=== PATIENT | female | born 1950 | race Caucasian/White ===

== ENCOUNTER 2019-10-25 09:09 | Outpatient (CLI) | payer MEDICARE, OTHER, SELFPAY ==
[2019-10-25 10:09] LABS: Alanine Aminotransferase 14 U/L (4-35); Albumin Level 4.4 g/dL (3.5-5.1); Alkaline Phosphatase 69 U/L (38-126); Aspartate Amino Transferase 25 U/L (14-36); Bilirubin,Total 0.2 mg/dL (0.2-1.3); Blood Urea Nitrogen 22 mg/dL (7-17); CRP < 0.5 mg/dL (<1.0); Calcium 9.4 mg/dL (8.4-10.2); Carbon Dioxide 30 mmol/L (22-30); Chloride 103 mmol/L (98-107); Cholesterol 241 mg/dL (0-200); Estimated Glomerular Filt Rate > 60; Glucose 108 mg/dL (65-105); HDL Direct 63 mg/dL; Potassium 5.4 mmol/L (3.4-5.0); Sodium 139 mmol/L (137-145); Triglycerides 62 mg/dL (<150)
[2019-10-25 10:17] LABS: LDL Cholesterol Direct 140 mg/dL
[2019-10-25 11:11] LABS: Folic Acid 13.5 ng/mL (2.76->20)
== END 2019-10-25 09:10 | disposition home or self-care (01) ==
PROVIDERS: PCP Family Medicine; Visit Provider Family Medicine
DX: E55.9 Vitamin D deficiency, unspecified (principal); I10 Essential (primary) hypertension; E78.00 Pure hypercholesterolemia, unspecified; E03.9 Hypothyroidism, unspecified
CPT/HCPCS: 36415; 80053; 80061; 82607; 82746; 84443; 86140

== ENCOUNTER 2020-01-21 07:30 | Outpatient (RCR) | payer MEDICARE, OTHER, SELFPAY ==
[2020-01-04 15:43] VITALS: PULSE 83
--- NOTE | 2020-01-10 08:30 | PCCPR ---
Suyapa absent today, she had to check on her elderly father. Suyapa will also be absent Tuesday and Tuesday next week for vacation.
--- NOTE | 2020-01-23 07:47 | PCCPR ---
absent-not feeling well
--- NOTE | 2020-01-24 11:42 | PCCPR ---
pt called and LM= something is going on and I need to talk to my Dr to figure it out - she stated she didn't want to hold up a spot for CR, so remove her from the list until she figures it out. Pt stated had OV on 01/24. Attempted to return call to discuss further with pt, ARPAN.
--- NOTE | 2020-01-30 10:59 | PCCPR ---
Discharging-Called to check in as we had received a voicemail that Suyapa was not feeling well and was trying to meet with MD to figure out what was going on. Spoke to Suyapa who states that she has too much traveling and cardiac rehab is not going to work out right now. Told Lizette she hadnt gotten her medication issues figured out yet. Will discharge patient from program.
== END 2020-01-30 11:02 | disposition home or self-care (01) ==
LOC: ANHCPREHAB 07:30
PROVIDERS: PCP Nurse Practitioner Family
DX: Z95.1 Presence of aortocoronary bypass graft (principal)
CPT/HCPCS: 93798

== ENCOUNTER 2020-08-12 09:26 | Outpatient (CLI) | payer MEDICARE, OTHER, SELFPAY ==
[2020-08-12 10:05] LABS: Basophils Absolute Auto 0.1 K/mm3 (0.0-0.1); Basophils Percent Auto 1.2 % (0.2-1.2); Eosinophils Absolute Auto 0.2 K/mm3 (0-0.3); Eosinophils Percent Auto 3.1 % (0-4.4); Hematocrit 46.7 % (37.0-47.0); Hemoglobin 15.3 g/dL (12.0-15.0); Immature Granulocyte Absolute 0.01 K/mm3 (0.00-0.031); Immature Granulocyte Percent A 0.2 % (0-0.5); Lymphocytes Absolute Auto 2.24 K/mm3 (0.9-3.2); Mean Corpuscular HGB Conc 32.8 g/dl (32-36); Mean Corpuscular Hemoglobin 29.6 pg (26-34); Mean Corpuscular Volume 90.3 fl (80-100); Mean Platelet Volume 9.2 fl (7.4-10.4); Monocytes Absolute Auto 0.5 K/mm3 (0.1-0.6); Monocytes Percent Auto 9.4 % (2.6-8.5); Neutrophils Absolute Auto 2.1 K/mm3 (1.3-6.7); Neutrophils Percent Auto 42.1 % (45.5-73.1); Platelet Count Result 231 k/mm3 (150-375); Red Blood Count 5.17 M/mm3 (4.2-5.4); Red Cell Distribution Width 13.3 % (11.5-14.5); White Blood Count 5.1 K/mm3 (4.5-10.0)
[2020-08-12 10:15] LABS: Anion Gap 5 mmol/L (8-16); Blood Urea Nitrogen 22 mg/dL (7-17); Calcium 9.1 mg/dL (8.4-10.2); Carbon Dioxide 33 mmol/L (22-30); Chloride 101 mmol/L (98-107); Cholesterol 248 mg/dL (0-200); Estimated Glomerular Filt Rate > 60; Glucose 90 mg/dL (65-105); HDL Direct 79 mg/dL; Potassium 4.3 mmol/L (3.4-5.0); Sodium 139 mmol/L (137-145); Triglycerides 87 mg/dL (<150)
[2020-08-12 10:26] LABS: LDL Cholesterol Direct 120 mg/dL
== END 2020-08-12 09:27 | disposition home or self-care (01) ==
PROVIDERS: PCP Nurse Practitioner Family
DX: I25.10 Atherosclerotic heart disease of native coronary artery without angina pectoris (principal); E78.5 Hyperlipidemia, unspecified; R53.83 Other fatigue
CPT/HCPCS: 36415; 80048; 80061; 84443; 85025

== ENCOUNTER 2020-11-13 08:39 | Outpatient (CLI) | payer MEDICARE, OTHER, SELFPAY ==
[2020-11-13 09:17] LABS: Alanine Aminotransferase 26 U/L (4-35); Albumin Level 4.3 g/dL (3.5-5.1); Alkaline Phosphatase 53 U/L (38-126); Aspartate Amino Transferase 41 U/L (14-36); Bilirubin,Total 0.5 mg/dL (0.2-1.3); Cholesterol 166 mg/dL (0-200); HDL Direct 58 mg/dL; Triglycerides 95 mg/dL (<150)
[2020-11-13 09:28] LABS: LDL Cholesterol Direct 69 mg/dL
== END 2020-11-13 08:40 | disposition home or self-care (01) ==
PROVIDERS: PCP Nurse Practitioner Family
DX: E78.5 Hyperlipidemia, unspecified (principal)
CPT/HCPCS: 36415; 80061; 80076

== ENCOUNTER 2021-07-27 09:12 | Outpatient (CLI) | payer MEDICARE, OTHER, SELFPAY ==
--- NOTE | ~2021-07-27 | MM_ITS ---
EXAMINATION: MM screening [facility] BI w karina HISTORY: Screening TECHNIQUE: Craniocaudal and mediolateral oblique 3-D tomosynthesis images were obtained and synthetic 2-D images were generated. CAD analysis was submitted and interpreted. COMPARISON: 11/17/2012 BREAST PARENCHYMAL COMPOSITION: There are scattered areas of fibroglandular density. FINDINGS: There is no evidence of suspicious mass, calcification, or architectural distortion to sugg est malignancy in either breast. There has been no suspicious interval change. IMPRESSION: 1. No mammographic evidence of malignancy. 2. Recommend routine screening mammography in one year. BI-RADS Category 1: Negative Reviewed, dictated and finalized at location A.
[2021-07-27 10:05] LABS: Basophils Absolute Auto 0.1 K/mm3 (0.0-0.1); Basophils Percent Auto 0.9 % (0.2-1.2); Eosinophils Absolute Auto 0.2 K/mm3 (0-0.3); Eosinophils Percent Auto 3.3 % (0-4.4); Hematocrit 41.7 % (37.0-47.0); Hemoglobin 13.6 g/dL (12.0-15.0); Immature Granulocyte Absolute 0.02 K/mm3 (0.00-0.031); Immature Granulocyte Percent A 0.3 % (0-0.5); Lymphocytes Percent Auto 32.6 % (18.3-44.2); Mean Corpuscular HGB Conc 32.6 g/dl (32-36); Mean Corpuscular Hemoglobin 29.8 pg (26-34); Mean Corpuscular Volume 91.2 fl (80-100); Mean Platelet Volume 9.5 fl (7.4-10.4); Monocytes Absolute Auto 0.7 K/mm3 (0.1-0.6); Neutrophils Absolute Auto 3.4 K/mm3 (1.3-6.7); Neutrophils Percent Auto 51.9 % (45.5-73.1); Platelet Count Result 263 k/mm3 (150-375); Red Blood Count 4.57 M/mm3 (4.2-5.4); Red Cell Distribution Width 13.2 % (11.5-14.5); White Blood Count 6.5 K/mm3 (4.5-10.0)
[2021-07-27 10:11] LABS: Alanine Aminotransferase 17 U/L (4-35); Albumin Level 4.3 g/dL (3.5-5.1); Alkaline Phosphatase 67 U/L (38-126); Anion Gap 7 mmol/L (8-16); Aspartate Amino Transferase 37 U/L (14-36); Bilirubin,Total 0.5 mg/dL (0.2-1.3); Blood Urea Nitrogen 18 mg/dL (7-17); Carbon Dioxide 29 mmol/L (22-30); Chloride 103 mmol/L (98-107); Cholesterol 162 mg/dL (0-200); Estimated Glomerular Filt Rate > 60; Glucose 99 mg/dL (65-110); HDL Direct 46 mg/dL; Potassium 4.4 mmol/L (3.4-5.0); Sodium 139 mmol/L (137-145); Triglycerides 98 mg/dL (<150)
[2021-07-27 10:22] LABS: LDL Cholesterol Direct 67 mg/dL
[2021-07-27 11:04] LABS: Thyroid Stimulating Hormone Reflex < 0.015 uIU/mL (0.465-4.68)
[2021-07-27 12:29] LABS: Free T4 Free Thyroxine Reflex 1.99 ng/dL (0.78-2.19)
[2021-07-27 13:15] LABS: Total Triiodothyronine (T3) 1.19 NG/ML (0.97-1.69)
== END 2021-07-27 09:13 | disposition home or self-care (01) ==
PROVIDERS: PCP Nurse Practitioner Family; Referring Provider Internal Medicine Cardiovascular Disease; Visit Provider Nurse Practitioner Family
DX: Z12.31 Encounter for screening mammogram for malignant neoplasm of breast (principal); F34.1 Dysthymic disorder; I10 Essential (primary) hypertension; I25.708 Atherosclerosis of coronary artery bypass graft(s), unspecified, with other forms of angina pectoris; Z95.1 Presence of aortocoronary bypass graft; Z95.5 Presence of coronary angioplasty implant and graft
CPT/HCPCS: 36415; 77063; 77067; 80053; 80061; 83735; 84439; 84443; 84480; 85025

== ENCOUNTER 2022-01-01 09:18 | Outpatient (CLI) | payer MEDICARE, OTHER, SELFPAY ==
[2022-01-01 20:28] LABS: Alanine Aminotransferase 20 U/L (6-35); Albumin Level 4.5 g/dL (3.5-5.1); Alkaline Phosphatase 63 U/L (38-126); Anion Gap 10 mmol/L (8-16); Aspartate Amino Transferase 32 U/L (14-36); Bilirubin,Total 0.4 mg/dL (0.2-1.3); Blood Urea Nitrogen 16 mg/dL (7-17); Calcium 9.5 mg/dL (8.4-10.2); Carbon Dioxide 28 mmol/L (22-30); Chloride 102 mmol/L (98-107); Cholesterol 261 mg/dL (0-200); Estimated Glomerular Filt Rate > 60; Glucose 96 mg/dL (65-110); HDL Direct 64 mg/dL; Potassium 4.6 mmol/L (3.4-5.0); Sodium 140 mmol/L (137-145); Triglycerides 113 mg/dL (<150)
[2022-01-01 20:39] LABS: LDL Cholesterol Direct 120 mg/dL
[2022-01-01 22:24] LABS: Thyroid Stimulating Hormone Reflex 0.214 uIU/mL (0.465-4.68)
[2022-01-02 04:33] LABS: Free T4 Free Thyroxine Reflex 1.31 ng/dL (0.78-2.19)
[2022-01-02 05:17] LABS: Total Triiodothyronine (T3) 1.12 NG/ML (0.97-1.69)
== END 2022-01-01 09:19 | disposition home or self-care (01) ==
PROVIDERS: PCP Emergency Medicine; Visit Provider Emergency Medicine
DX: E03.9 Hypothyroidism, unspecified (principal); E78.5 Hyperlipidemia, unspecified; Z12.11 Encounter for screening for malignant neoplasm of colon
CPT/HCPCS: 36415; 80053; 80061; 84439; 84443; 84480

== ENCOUNTER 2022-01-27 01:46 | Day surgery (SDC) | payer MEDICARE, OTHER, SELFPAY ==
[2022-01-13 14:59] VITALS: BMI 26.2
--- NOTE | 2022-01-27 09:32 | WPDANESEPPF ---
Anes - Initial Pre Proc Eval Procedure: Operation Date: 01/27/22 11:00 Proposed Procedures p Screening Colonoscopy - Chadwick Bradshaw MD Date/Time: 01/27/22 09:32 Surgeon: Chadwick Bradshaw MD Pre Op Diagnosis: family hx colon ca Patient Data Age: 71 Gender: F Height: 1.6 m Weight: 67 kg Allergies Allergy/AdvReac Type Severity Reaction Status Date / Time penicillin G Allergy Severe hives Verified 01/01/22 08:25 [id number] Reductase Allergy Severe muscle Verified 01/01/22 08:25 Inhibitor cramps Sulfa (Sulfonamide Allergy Severe hives Verified 01/01/22 08:25 Antibiotics) Home Medications Medication Instructions Recorded Confirmed Type aspirin 81 mg tablet,delayed 81 mg PO DAILY 01/04/20 01/13/22 History release (Robert Low Dose Aspirin) magnesium oxide 400 mg PO DAILY 01/04/20 01/13/22 History amlodipine 5 mg tablet 5 mg PO DAILY 01/01/22 01/13/22 History bempedoic acid 180 mg-ezetimibe 10 1 tablet PO DAILY #90 tabs 01/01/22 01/13/22 Rx mg tablet (Nexlizet) isosorbide dinitrate 30 mg tablet 30 mg PO TID 01/01/22 01/13/22 History nitroglycerin 0.4 mg sublingual 0.4 mg sublingual Q5M PRN Chest 01/01/22 01/13/22 History tablet Pain ranolazine 500 mg tablet,extended 500 mg PO Q12H 01/01/22 01/13/22 History release,12 hr levothyroxine 125 mcg capsule 125 mcg PO DAILY #90 caps 01/04/22 01/13/22 Rx metoprolol succinate 50 mg 50 mg PO DAILY 01/04/22 01/13/22 History tablet,extended release 24 hr Patient hx anesthesia problems: none Family hx anesthesia problems: none Results Review: All pre-operative results and documents have been reviewed as part of the pre-operative evaluation. FOR[facility]LY [facility], [facility] Past Medical History Medical History (Updated 01/27/22 @ 09:33 by Xavier Gonzalez DO) CAD (coronary artery disease) Hyperlipidemia Hypothyroidism (acquired) Surgical History Surgical History (Updated 01/27/22 @ 09:33 by Xavier Gonzalez DO) History of coronary artery stent placement History of thyroidectomy History of tubal ligation Hx of CABG x4 2020 Family History Family History Mother Chronic obstructive pulmonary disease Father Colon cancer Malignant neoplasm of prostate Acute myocardial infarction Sibling Acute myocardial infarction Social History Social History Smoking status: Never smoker Additional smoking assessment comments: SOCIAL SMOKER, RARELY SMOKED Alcohol intake: current Substance use: never Substance use type: does not use Living arrangements: with family Spiritual care concerns: No Anes - Eval Final PreProcedure Day of Procedure 01/27/22 09:32 Patient weight: overweight Heart: regular rate and rhythm Lungs: clear to auscultation Airway: Mallampati scale class II Neurological: alert and oriented Last oral intake: >/= 8 hours ASA classification: III Emergent: no Anesthetic plan: proceed Anesthesia type and monitoring: general GIVS and standard monitoring Results Review: All pre-operative results and documents have been reviewed as part of the pre-operative evaluation. Informed Consent: The patient's anesthetic plan and its attendant risks and benefits were discussed with the patient/family/POA. Questions were solicited and answers provided to the satisfaction of the patient/family/POA.
[2022-01-27 09:49] VITALS: BP 152/90; PULSE 80; RESP 18; TEMP 36.4; O2SAT 100; BMI 26.0
[2022-01-27] MEDS: LACTATED RINGERS 1,000 ML 150 ML IV CONT (10:05)
--- NOTE | 2022-01-27 10:17 | PM.HPGS ---
History of Present Illness History of Present Illness Consent: Risks, benefits, and alternatives have been discussed and questions answered. Patient agrees to proceed with procedure. Chief complaint: family hx colon ca Narrative: Suyapa Mcclellan is a 71 year old female here for first screening colonoscopy, father had colon cancer Review of Systems Constitutional: Constitutional: Denies headache(s) and Denies weakness Eyes: Eyes: Denies blurry vision ENT: Reports Normal hearing present, Denies headache(s) and Denies neck pain Cardiovascular: Cardiovascular: Denies chest pain and Denies dyspnea Respiratory: Respiratory: Denies dyspnea Gastrointestinal: Gastrointestinal: Reports no additional gastrointestinal complaints Genitourinary: Genitourinary: Denies dysuria Musculoskeletal: Musculoskeletal: Denies neck pain Integumentary/Breasts: Skin/Breast: Denies dry skin Neurologic: Reports Normal hearing present, Denies headache(s) and Denies weakness Psychiatric: Psychiatric: Denies anxiety Endocrine: Endocrine: Denies change in body appearance Hematologic/Lymphatic: Hematologic/Lymphatic: Denies easy bleeding Allergic/Immunologic: Allergic/Immunologic: Denies urticaria PMFSH Past Medical History Medical History (Updated 01/27/22 @ 09:33 by Xavier Gonzalez DO) CAD (coronary artery disease) Hyperlipidemia Hypothyroidism (acquired) Surgical History Surgical History (Updated 01/27/22 @ 09:33 by Xavier Gonzalez DO) History of coronary artery stent placement History of thyroidectomy History of tubal ligation Hx of CABG x4 2020 Family History Family History Mother Chronic obstructive pulmonary disease Father Colon cancer Malignant neoplasm of prostate Acute myocardial infarction Sibling Acute myocardial infarction Social History Social History Smoking status: Never smoker Additional smoking assessment comments: SOCIAL SMOKER, RARELY SMOKED Alcohol intake: current Substance use: never Substance use type: does not use Living arrangements: with family Spiritual care concerns: No Meds Home Medications and Allergies Home Medications Medication Instructions Recorded Confirmed Type aspirin 81 mg tablet,delayed 81 mg PO DAILY 01/04/20 01/13/22 History release (Robert Low Dose Aspirin) magnesium oxide 400 mg PO DAILY 01/04/20 01/13/22 History amlodipine 5 mg tablet 5 mg PO DAILY 01/01/22 01/13/22 History bempedoic acid 180 mg-ezetimibe 10 1 tablet PO DAILY #90 tabs 01/01/22 01/13/22 Rx mg tablet (Nexlizet) isosorbide dinitrate 30 mg tablet 30 mg PO TID 01/01/22 01/13/22 History nitroglycerin 0.4 mg sublingual 0.4 mg sublingual Q5M PRN Chest 01/01/22 01/13/22 History tablet Pain ranolazine 500 mg tablet,extended 500 mg PO Q12H 01/01/22 01/13/22 History release,12 hr levothyroxine 125 mcg capsule 125 mcg PO DAILY #90 caps 01/04/22 01/13/22 Rx metoprolol succinate 50 mg 50 mg PO DAILY 01/04/22 01/13/22 History tablet,extended release 24 hr Allergies Allergy/AdvReac Type Severity Reaction Status Date / Time penicillin G Allergy Severe hives Verified 01/01/22 08:25 [id number] Reductase Allergy Severe muscle Verified 01/01/22 08:25 Inhibitor cramps Sulfa (Sulfonamide Allergy Severe hives Verified 01/01/22 08:25 Antibiotics) Vital Signs Vital Signs - 24 hr 01/27/22 09:49 Temperature 97.6 F Pulse Rate 80 Respiratory Rate 18 Blood Pressure 152/90 H Pulse Oximetry 100 Oxygen Delivery Room Air Exam Const: General: comfortable and no acute distress HENMT: Face/Nose/Sinus: Normal nares present Eyes: General: appearance normal, both eyes and all related structures Neck: Neck: no JVD Resp: Auscultation: clear to auscultation bilaterally Cardio: Rate: regular rate Rhythm: regular rhythm GI: Insp
[2022-01-27 10:36] VITALS: BP 102/61; PULSE 60; RESP 18; O2SAT 98
[2022-01-27 10:46] VITALS: BP 112/65; PULSE 60; RESP 22; O2SAT 100
[2022-01-27 10:56] VITALS: BP 137/80; PULSE 69; RESP 25; O2SAT 100
== END 2022-01-27 11:17 | disposition home or self-care (01) ==
PROVIDERS: PCP Emergency Medicine; Visit Provider Internal Medicine Gastroenterology
PROC: 0DJD8ZZ Inspection of Lower Intestinal Tract, Via Natural or Artificial Opening Endoscopic (ICD-10-PCS; CPT 45378; principal; 2022-01-27 11:00)
DX: Z12.11 Encounter for screening for malignant neoplasm of colon (principal); Z80.0 Family history of malignant neoplasm of digestive organs; K64.8 Other hemorrhoids; I25.10 Atherosclerotic heart disease of native coronary artery without angina pectoris; E89.0 Postprocedural hypothyroidism; Z95.1 Presence of aortocoronary bypass graft; Z95.5 Presence of coronary angioplasty implant and graft; Z79.82 Long term (current) use of aspirin
CPT/HCPCS: G0105; J2704; J7120

== ENCOUNTER 2022-10-01 13:48 | Outpatient (CLI) | payer MEDICARE, OTHER, SELFPAY ==
--- NOTE | ~2022-10-01 | MM_ITS ---
EXAMINATION: MM screening [facility] BI w karina HISTORY: Screening TECHNIQUE: Craniocaudal and mediolateral oblique 3-D tomosynthesis images were obtained and synthetic 2-D images were generated. CAD analysis was submitted and interpreted. COMPARISON: Comparison to multiple prior studies sequentially, with oldest reviewed study dated 11/17. BREAST PARENCHYMAL COMPOSITION: There are scattered areas of fibroglandular density. FINDINGS: There is no evidence of suspicious mass, calcification, or architectural distortion to sugg est malignancy in either breast. There has been no suspicious interval change. IMPRESSION: 1. No mammographic evidence of malignancy. 2. Recommend routine screening mammography in one year. BI-RADS Category 1: Negative Reviewed, dictated and finalized at location A.
== END 2022-10-01 13:49 | disposition home or self-care (01) ==
LOC: ANHIMG 13:50
PROVIDERS: PCP Emergency Medicine; Visit Provider Emergency Medicine
DX: Z12.31 Encounter for screening mammogram for malignant neoplasm of breast (principal)
CPT/HCPCS: 77063; 77067

== ENCOUNTER 2024-01-11 09:11 | Outpatient (CLI) | payer MEDICARE, OTHER, SELFPAY ==
[2024-01-11 18:49] LABS: Basophils Absolute Auto 0.1 K/mm3 (0.0-0.1); Basophils Percent Auto 1.5 % (0.2-1.2); Eosinophils Absolute Auto 0.2 K/mm3 (0-0.3); Eosinophils Percent Auto 3.2 % (0-4.4); Hematocrit 45.3 % (37.0-47.0); Hemoglobin 14.8 g/dL (12.0-15.0); Immature Granulocyte Absolute 0.01 K/mm3 (0.00-0.031); Immature Granulocyte Percent A 0.2 % (0-0.5); Lymphocytes Absolute Auto 2.25 K/mm3 (0.9-3.2); Lymphocytes Percent Auto 42.9 % (18.3-44.2); Mean Corpuscular HGB Conc 32.7 g/dl (32-36); Mean Corpuscular Hemoglobin 30.2 pg (26-34); Mean Corpuscular Volume 92.4 fl (80-100); Mean Platelet Volume 10.3 fl (7.4-10.4); Monocytes Absolute Auto 0.6 K/mm3 (0.1-0.6); Monocytes Percent Auto 11.5 % (2.6-8.5); Neutrophils Absolute Auto 2.1 K/mm3 (1.3-6.7); Neutrophils Percent Auto 40.7 % (45.5-73.1); Platelet Count Result 242 k/mm3 (150-375); Red Cell Distribution Width 14.3 % (11.5-14.5); White Blood Count 5.2 K/mm3 (4.5-10.0)
[2024-01-11 20:03] LABS: Alanine Aminotransferase 20 U/L (6-35); Albumin Level 4.2 g/dL (3.5-5.1); Alkaline Phosphatase 58 U/L (38-126); Anion Gap 7 mmol/L (4-12); Aspartate Amino Transferase 47 U/L (14-36); Bilirubin,Total 0.5 mg/dL (0.2-1.3); Blood Urea Nitrogen 16 mg/dL (7-17); Carbon Dioxide 32 mmol/L (22-30); Chloride 98 mmol/L (98-107); Cholesterol 253 mg/dL (0-200); Estimated Glomerular Filt Rate > 60; Glucose 85 mg/dL (65-110); HDL Direct 67 mg/dL; Potassium 4.3 mmol/L (3.4-5.0); Sodium 137 mmol/L (137-145); Triglycerides 80 mg/dL (<150)
[2024-01-11 20:13] LABS: LDL Cholesterol Direct 144 mg/dL
== END 2024-01-11 09:12 | disposition home or self-care (01) ==
PROVIDERS: PCP Emergency Medicine; Visit Provider Nurse Practitioner Family
DX: E03.9 Hypothyroidism, unspecified (principal); I25.10 Atherosclerotic heart disease of native coronary artery without angina pectoris; E78.5 Hyperlipidemia, unspecified
CPT/HCPCS: 36415; 80053; 80061; 84443; 85025

== ENCOUNTER 2024-01-25 13:57 | Outpatient (CLI) | payer MEDICARE, OTHER, SELFPAY ==
--- NOTE | ~2024-01-25 | MM_ITS ---
EXAMINATION: MM screening [facility] BI w karina HISTORY: Screening TECHNIQUE: Craniocaudal and mediolateral oblique 3-D tomosynthesis images were obtained and synthetic 2-D images were generated. CAD analysis was submitted and interpreted. COMPARISON: Comparison to multiple prior studies sequentially, with oldest reviewed study dated 05/2014. BREAST PARENCHYMAL COMPOSITION: Not dense: There are scattered areas of fibroglandular density. FINDINGS: There is no evidence of suspicious mass, calcification, or architectural distortion to sugg est malignancy in either breast. There has been no suspicious interval change. IMPRESSION: 1. No mammographic evidence of malignancy. 2. Recommend routine screening mammography in one year. BI-RADS Category 1: Negative Reviewed, dictated and finalized at location B.
== END 2024-01-25 13:58 | disposition home or self-care (01) ==
PROVIDERS: PCP Emergency Medicine; Visit Provider Emergency Medicine
DX: Z12.31 Encounter for screening mammogram for malignant neoplasm of breast (principal)
CPT/HCPCS: 77063; 77067

== ENCOUNTER 2025-01-08 09:15 | Outpatient (CLI) | payer MEDICARE, OTHER, SELFPAY ==
--- OUTSIDE RECORDS SUMMARY | 2025-01-08 10:32 | XMS_ITS | Clinical Summary ---
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 Gender Identity Not on file Sexual Orientation Not on file Plan of Treatment Health Maintenance Due Date Last Done Comments Hepatitis C Virus (HCV) Screening 1950 TdaP Immunization 1950 Cologuard 1996 Colonoscopy 1996 Colorectal Cancer Screening 1996 Immunochemical Fecal Occult Blood 1996 Pneumococcal Immunization (5 0+ years) (1 of 1 - PCV) 2001 Zoster Immunization (1 of 2) 2001 SARS-COV-2 Immunization (1 - season) 2023 Influenza Immunization (#1) 2024 Respiratory Syncytial Virus (RSV) Immunization (Adult) (1 - 1-dose 75+ series) 2026 Hepatitis B Immunization Aged Out No longer eligible based on patient's age to complete this topic Human Papillomavirus (HPV) Immunization Aged Out No longer eligible b ased on patient's age to complete this topic Meningococcal Immunization (ACWY) Aged Out No longer eligible based on patient's age to complete this topic Rotavirus Immunization Aged Out No lo nger eligible based on patient's age to complete this topic Insurance [facility]
--- OUTSIDE RECORDS SUMMARY | 2025-01-08 10:32 | XMS_ITS | Encounter Summary ---
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 Name Role Phone Unavailable Primary Care Provider Unavailabl e Reason for Visit * Reason Onset Date Comments Question 10/02/2021 Encounter Details Date Type Department Care Team (Late st Contact Info) Description 10/02/2021 Telephone [facility] [address] [place], [place] [id number] Shana Chou MD [address] [place] [address] Question Social History Tobacco Use Types Packs/Day Years Used Date Smoking Tobacco: Former Cigarettes Q uit: 1999 Smokeless Tobacco: Never Comments No Sex and Gender Information Value Date Recorded Sex Assigned at Not on file Legal Sex Female 10:52 AM CDT Gender Identity Female 10/02/2021 6:31 PM CDT Sexual Orientation Not on file documented as of this encounter Miscellaneous Notes * Telephone Encounter - Radha Jon - 10/02/2021 9:00 AM CDT Pt calling about procedure the she had done yesterday, this morning when taking her shower pt realized a huge budlge and wants to know if she should leave it or remove it.. please contact CB#[phone] documented in this encounter Plan of Treatment Not on file documented as of this encounter Visit Diagnoses Not on filedocumented in this encounter
--- OUTSIDE RECORDS SUMMARY | 2025-01-08 10:32 | XMS_ITS | Clinical Summary ---
Author Organization [facility] Address [address] [place] [address] Care Team Providers Care Tow Mate Name Role Phone No, Physician Primary Care Provider [phone] Anabell Stauffer MD Unavailable Allergies Active Allergy Reactions Criticality Noted Date Comments Penicillins Hives Medium 04/27/2021 Sulfa (Sulfonamide Antibiotics) Hives Medium 06/2021 Medications metoprolol XL (TOPROL-XL) 50 mg extended release tablet Take 1 tablet (50 mg total) by mouth nightly Active amLODIPine (NORVASC) 5 mg tablet Take 5 mg by mouth daily Active ranolazine ER (RANEXA) 500 mg 12 hr tablet Take 1 tablet (500 mg total) by mouth 2 (two) times a day Active isosorbide dinitrate (ISORDIL) 30 mg tablet Take 1 tablet (30 mg total) by mouth 4 (four) times a day Active aspirin 81 mg enteric coated tablet Take 1 tablet (81 mg total) by mouth daily Active levothyroxine (SYNTHROID) 125 mcg tablet Take 1 tablet (125 mcg total) by mouth home health clinical liaison before breakfast 90 tablet 1 2 Active ezetimibe (ZETIA) 10 mg tablet Take 1 tablet (10 mg total) by mouth nightly Active docusate sodium (COLACE) 100 mg capsuleIndicati ons:constipatio n Take 1 capsule (100 mg total) by mouth 2 (two) times a day with a glass of water 120 capsule 3 Active Additional Information Patient not taking.Reported on 06/28/2024 nitroglycerin (NITROSTAT) 0.4 mg SL tablet 1 tablet (0.4 mg total) 4 Active estradioL (ESTRACE) 0.01 % (0.1 mg/gram) vaginal cream Apply nightly to 2 gm vagina for 1 week, then Tuesday/Tuesday / Tuesday 42.5 g 5 5 03/07/20 25 Active Active Problems Problem Noted Date Diagnosed Date Vaginal dryness 07/17/2024 Assessment & Plan (08/29/2024 11:34 AM CDT): To continue to use the estrogen cream. Assessment & Plan (07/17/2024 4:04 PM CDT): To vaginal estrogen Use reviewed. LLQ pain 07/17/2024 Assessment & Plan (08/29/2024 11:35 AM CDT): Not sure why she is having this Will repeat the usg in 6m to ensure resolution of the cyst Bowels are fine. Well woman exam 06/28/2024 Family history of cancer 06/28/2024 Assessment & Plan (06/28/2024 4:06 PM LOOP TENDER): She declines genetic testing. Bladder polyp 06/02/2022 Overview (06/02/2022): Added automatically from request for surgery [id number] Rectocele 06/02/2022 Overview (06/02/2022): Added automatically from request for surgery [id number] Mixed hyperlipidemia 06/17/2021 Assessment & Plan (06/18/2021 6:50 PM LOOP TENDER): Continue with medication as ordered. Continue to follow up with Dr. Nelson. Watch diet, eat balanced., exercise as tolerated. Hypertension, essential 06/17/2021 Assessment & Plan (06/18/2021 6:56 PM LOOP TENDER): Continue with medication as ordered Continues the regards to cardiovascular. Health. Note continues to have some unstable angina, states it is better. Has figured out what causes angina with certain activities. 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 Continue with medications as ordered. Dr Nelson has ordered lab work in about 2 months. Cystocele, midline 04/27/2021 Overview (05/07/2021): #3 ring with support 05/07/21- did not stay in Assessment & Plan (06/28/2024 4:01 PM LOOP TENDER): S/p rectocele and cystocele repair Assessment & Plan (05/07/2021 5:10 PM LOOP TENDER): Will refer to Dr. Hutchins. rto 12m for WWE Assessment & Plan (04/29/2021 7:22 AM LOOP TENDER): Pt fitted with a number 3 ring with support To rto 1-2 weeks (after her trip) for f/u Trimosan use reviewed. Assessment & Plan (04/27/2021 1:16 PM LOOP TENDER): Options discussed. She will come to the [place] office tomorrow for pessary fitting To use fiber to bulk stool up and prevent constipation Ophthalmic migraine 07/26/2019 Assessment & Plan (07/26/2019 8:35 AM CDT): Re-assured patient retinal examination unremarkable. Visual field (VF) full with confrontation. Recommend follow-up with local pulp and paper tester with visual field testing within the new few mo. Pt to call with any worsening sx/concerns. Avoid possible triggers. Immunizations Immunization Administration Dates Next Due Influenza, Unspecified 03/09/2021,03/09/2020 Pfizer SARS-CoV-2 Monovalent Vaccination (12+ Yrs) PURPLE 04/08/2021 Tdap 06/17/2013 Surgical History Surgery Date Site/Laterality Comments APPENDECTOMY TUBAL LIGATION THYROIDECTOMY CORONARY ARTERY BYPASS GRAFT ANGIOPLASTY CATARACT EXTRACTION Bilateral Medical History Medical History Date Comments CAD (coronary artery disease) Hypothyroid Hypercholesterolemia HTN (hypertension) High cholesterol Family History Medical History Relation Name Comments Colon cancer Father prostate, VA x3 , valve replacement, SCC that went to bone on right hand. Breast cancer Mother Breast cancer Other niece Luis- brother s daughter. Breast cancer Paternal Grandmother uterin e Cancer Neg Hx Her father's fa mil is being studied as all the females have had uterine or breast cancer. Her dad has not been tested. she is not aware of any results. cmt 06/28/24 Relation Name Status Comments Father Mother Other niece Alive Paternal Grandmother Social History Tobacco Use Types Packs/Day Years Used Date Smoking Tobacco: Former Smokeless Tobacco: Never Tobacco Cessation:Counseling Given: Not Answered Humiliation, Afraid, Rape, and Kick questionnair e Answer Date Recorded Within the last year, have y ou been afraid of your partner or ex-partner? No 06/28/2024 Within the last year, have y ou been humiliated or emotionally abused in other ways by your partner or ex-partner? No Within the last year, have y ou been kicked, hit, slapped, or otherwise physically hurt by your partner or ex-partner? No 06/28/2024 Within the last year, have y ou been raped or forced to have any kind of sexual activity by your partner or ex-partner? No 06/28/2024 AUDIT-C Answer Date Recorded Q1: How often do you have a drink containing alc ohol? 2-3 times a week 06/24/2022 Q2: How many drinks containi ng alcohol do you have on a typical day when you are drinking? 1 or 2 06/24/2022 Q3: How often do you have si x or more drinks on one occasion? Never 06/24/2022 PHQ-2 Answer Date Recorded PHQ-2 Total Score 0 08/29/2024 Personal Safety Answer Date Recorded Getting School Help Needed Denies 04/17 Comments No Sex and Gender Information Value Date Recorded Sex Assigned at Not on file Legal Sex Female 2:19 PM CDT Gender Identity Not on file Sexual Orientation Not on file Obstetrics History Para Term AB IAB SAB Ectopic Multiple Livin g Live Births 3 3 Date Outcome GA Total Labor Labor/2nd/3rd Weight Sex Type Anes PTL Maria Esther A1 A5 Name Clin Last Filed Vital Signs Vital Sign Reading Time Taken Comments Blood Pressure 130/78 08/29/2024 10:05 AM CDT Pulse 64 06/24/2022 3:25 PM LOOP TENDER Temperature 35.6 C (96 F) 06/24/2022 11:44 AM LOOP TENDER Respiratory Rate 16 06/24/2022 3:25 PM LOOP TENDER Oxygen Saturation 98% 06/24/2022 3:25 PM LOOP TENDER Inhaled Oxygen Concentration - - Weight 69.4 kg (153 lb) 08/29/2024 10:05 AM CDT Height 160 cm (5' 3) 06/28/2024 3:37 PM LOOP TENDER Body Mass Index 27.1 06/28/2024 3:37 PM LOOP TENDER Plan of Treatment Health Maintenance Due Date Last Done Comments Colon Cancer Screening-Colonoscopy 1950 Hepatitis C Screening 1950 Osteoporosis Screening-Bone Density Scan 1951 Hepatitis B Screening 1969 Pneumococcal vaccine 65+ (1 of 2 - PCV) 1970 Zoster Vaccine (1 of 2) 2001 Well Visit 65+ 2016 Breast Cancer Screening-Mammogram 07/27/2022 022 DTaP/Tdap/Td Vaccine (2 - Td or Tdap) 06/17/2023 06/17/2013 Fall Risk Assessment 06/25/2023 06/24/2022, 06/17/19 Covid-19 Vaccine (4 - 2024-2 6 season) 2024 04/08/2021, 07/01/2020, 06/10/2020 Influenza Vaccine (#1) 2024 03/09/2021, 2019 Depression Screening 08/29/2025 08/29/2024, 06/17/2021, 04/28/2021, Additional history exists Colon Cancer Screening-DNA Stool Discontinued 01/26/20 22 Colon Cancer Screening-FIT Discontinued 01/25/2022 Procedures Procedure Name Priority Date/Time Associated Diagnosis Comments STOOL DNA COLOGUARD Routine 01/25/2022 9:30 AM CDT Colon cancer screening HM MAMMOGRAPHY Routine 07/27/2021 from Last 3 Months or Most Recently Relevant to Health Maintenance Results * Stool DNA - Cologuard (01/25/2022 9:30 AM CDT) Stool DNA - Cologuard Negative Negative [facility] (CLIA #:[id number]) Comment: NEGATIVE TEST RESULT. A negative Cologuard result indicates a low likelihood that a colorectal cancer (CRC) or advanced adenoma (adenomatous polyps with more advanced pre-malignant features) is present. The chance that a person with a negative Cologuard test has a colorectal cancer is less than 1 in 1500 (negative predictive value >99.9%) or has an advanced adenoma is less than 5.3% (negative predictive value 94.7%). These data are based on a prospective cross-sectional study of 10,000 individuals at average risk for colorectal cancer who were screened with both Cologuard and colonoscopy. (Robe Angela et al, N Engl J Med 2014;370(14):9182-5784) The normal value (reference range) for this assay is negative. COLOGUARD RE-SCREENING RECOMMENDATION: Periodic colorectal cancer screening is an important part of preventive healthcare for asymptomatic individuals at average risk for colorectal cancer. Following a negative Cologuard result, the [place] [employer] and U.S. Multi-Society Task Force screening guidelines recommend a Cologuard re-screening interval of 3 years. References: [place] [employer] Guideline for Colorectal Cancer Screening: https://www.cancer.org/cancer/qfeeu-rsfcxr-nghfvp/gaubnbptu-dbpetuvft-qabsewm/ac s-rec ommendations.html.; Morteza COBB, Travis FINNEY, Wilner HugoK, Colorectal Cancer Screening: Recommendations for Physicians and Patients from the U.S. Multi-Society Task Force on Colorectal Cancer Screening , Am J Gastroenterology 2017; 112:3214-4328. TEST DESCRIPTION: Composite algorithmic analysis of stool DNA-biomarkers with hemoglobin immunoassay. Quantitative values of individual biomarkers are not reportable and are not associated with individual biomarker result reference ranges. Cologuard is intended for colorectal cancer screening of adults of either sex, 45 years or older, who are at average-risk for colorectal cancer (CRC). Cologuard has been approved for use by the U.S. FDA. The performance of Cologuard was established in a cross sectional study of average-risk adults aged 50-84. Cologuard performance in patients ages 45 to 49 years was estimated by sub-group analysis of near-age groups. Colonoscopies performed for a positive result may find as the most clinically significant lesion: colorectal cancer [4.0%], advanced adenoma (including sessile serrated polyps greater than or equal to 1cm diameter) [20%] or non- advanced adenoma [31%]; or no colorectal neoplasia [45%]. These estimates are derived from a prospective cross-sectional screening study of 10,000 individuals at average risk for colorectal cancer who were screened with both Cologuard and colonoscopy. (Robe Arias. et al, N Engl J Med 2014;370(14):0335-8070.) Cologuard may produce a false negative or false positive result (no colorectal cancer or precancerous polyp present at colonoscopy follow up). A negative Cologuard test result does not guarantee the absence of CRC or advanced adenoma (pre-cancer). The current Cologuard screening interval is every 3 years. ([place] [employer] and U.S. Multi-Society Task Force). Cologuard performance data in a 10,000 patient pivotal study using colonoscopy as the reference method can be accessed at the following location: www.eMithilaHaat/results. Additional description of the Cologuard test process, warnings and precautions can be found at www.cologuard.com. Stool 01/25/2022 9:30 AM CDT 01/26/2022 11:05 AM CDT Herberth Bhatti NP LAB BODY FLUIDS AND STOOLS ORDER PEDRO Final Result [facility] (CLIA #:[id number]) [place] [address] [address] * HM MAMMOGRAPHY (07/27/2021) Historical Provider HEALTH MAINTENANCE Edited Result - Final from Last 3 Months or Most Recently Relevant to Health Maintenance [place] [address] [employer] MEDICARE [facility] [place] [place] [address] Care Teams Tow Mate Relationship Specialty Start Date End Date No, Physician PCP - General 06/17/22 [place] [address] [place] [id number] Consulting Physician Urology 06/24/22
--- OUTSIDE RECORDS SUMMARY | 2025-01-08 10:32 | XMS_ITS | Clinical Summary ---
Author Organization [facility] [address] Address [address] [place] [address] Care Team Providers Care Cab Station Attendant Name Role Phone Unavailable Primary Care Provider Unavailabl e Source Comments [facility] [address],non-owned Affiliates and Associated Physician Practices is amultiple site organization consisting of ambulatory clinics and hospital sitesin [place], [place], [place] and [place]. This disclosure is being madepursuant to the Care Everywhere program and may not contain all information available regarding this patient. Last updated 18.[facility] [address] Allergies Active Allergy Reactions Criticality Noted Date Comments Penicillins Urticaria Medium 04/27/2021 Sulfa Drugs Urticaria Medium 04/27/2021 Medications * Be aware that medications may not be up to date on this document. Alwaysverify current medications with the patient. aspirin 0.1 mg/mL solution aspirin Activ e methylPREDNISol one (MEDROL, YAMILET, PO) 4 mg Active amLODIPine (NORVASC) 5 MG tablet Take 5 mg by mouth once daily Active aspirin EC (ECOTRIN) 81 MG tablet Take 81 mg by mouth once daily Active ezetimibe (ZETIA) 10 MG tablet ezetimibe 10 mg tablet TAKE 1 TABLET BY MOUTH ONCE DAILY AT BEDTIME Active isosorbide dinitrate (ISORDIL) 30 MG tablet Take 30 mg by mouth 4 times daily Active levothyroxine (SYNTHROID) 125 MCG tablet Take 125 mcg by mouth once daily 2 Active metoprolol succinate XL 24hr (TOPROL XL) 50 MG tablet metoprolol succinate ER 50 mg tablet,extended release 24 hr TAKE 1 TABLET BY MOUTH ONCE DAILY IN THE MORNING Active ranolazine ER 12hr (RANEXA) 500 MG tablet Take 500 mg by mouth 2 times daily Active Family History Medical History Relation Name Comments CAD (Coronary Artery Disease) Father Cancer - Colon Father Hyperlipidemia Father Hypertension Father Cancer - Breast Mother Cancer - Breast Paternal Grandmother Cancer - Ovarian Paternal Grandmother Cancer - Uterine Paternal Grandmother Relation Name Status Comments Father Mother Paternal Grandmother Social History Tobacco Use Types Packs/Day Years Used Date Smoking Tobacco: Former Cigarettes Q uit: 1999 Smokeless Tobacco: Never Comments No Sex and Gender Information Value Date Recorded Sex Assigned at Not on file Legal Sex Female 10:52 AM CDT Gender Identity Female 10/02/2021 6:31 PM CDT Sexual Orientation Not on file Last Filed Vital Signs Vital Sign Reading Time Taken Comments Blood Pressure 140/92 10/01/2021 10:25 AM CDT Pulse - - Temperature - - Respiratory Rate - - Oxygen Saturation - - Inhaled Oxygen Concentration - - Weight 67.1 kg (148 lb) 10/01/2021 10:25 AM CDT Height 160 cm (5' 3) 10/01/2021 10:25 AM CDT Body Mass Index 26.22 10/01/2021 10:25 AM CDT Plan of Treatment Health Maintenance Due Date Last Done Comments BONE DENSITY TESTING 1950 COLOGUARD (AGES 45-75) - COLON CA SCREENING 1950 COLON MONITORING 1950 COLONOSCOPY - COLON CA SCREENING 1950 CT COLONOGRAPHY - COLON CA SCREENING 1950 Colorectal Cancer Screening 1950 FIT - COLON CA SCREENING 1950 FLEX SIG - COLON CA SCREENING 1950 HEPATITIS C SCREENING 03/14/1969 DTAP/TDAP/TD VACCINES (1 - Tdap) 1970 PNEUMOCOCCAL VACCINE 50+ (1 of 1 - PCV) 2001 ZOSTER VACCINE (1 of 2) 2001 SCREENING FOR DIABETES 10/01/2021 MAMMOGRAM 07/28/2023 07/27/2021 (Done Outside Per Report) DEPRESSION SCREENING 04/25/2024 COVID-19 VACCINE (2 - 2024-2 6 season) 2024 04/08/2021 INFLUENZA VACCINE (#1) 2024 03/09/2021, 2019 Respiratory Syncytial Virus (RSV) Vaccine Pt: or over 60 yrs (1 - 1-dose 75+ series) 2026 HEPATITIS B VACCINE Aged Out No longe r eligible based on patient's age to complete this topic HIB VACCINE Aged Out No longer eligi ble based on patient's age to complete this topic HPV VACCINE Aged Out No longer eligi ble based on patient's age to complete this topic MENINGOCOCCAL (Group B) VACCINE SHARED DECISION-MAKING Aged Out No longer eligible based on patient's age to complete this topic MENINGOCOCCAL GROUPS A/C/Y/W VACCINE Aged Out No longer eligible based on patient's age to complete this topic Insurance MEDICARE MEDICARE
[2025-01-08 19:34] LABS: Alanine Aminotransferase 18 U/L (6-35); Albumin Level 4.1 g/dL (3.5-5.1); Alkaline Phosphatase 73 U/L (38-126); Anion Gap 7 mmol/L (4-12); Aspartate Amino Transferase 38 U/L (14-36); Bilirubin,Total 0.6 mg/dL (0.2-1.3); Blood Urea Nitrogen 16 mg/dL (7-17); Calcium 9.0 mg/dL (8.4-10.2); Carbon Dioxide 29 mmol/L (22-30); Chloride 100 mmol/L (98-107); Cholesterol 263 mg/dL (0-200); Estimated Glomerular Filt Rate > 60; Glucose 74 mg/dL (65-110); HDL Direct 65 mg/dL; Potassium 4.7 mmol/L (3.4-5.0); Sodium 136 mmol/L (137-145); Total Protein 7.2 g/dL (6.3-8.2); Triglycerides 60 mg/dL (<150)
[2025-01-08 19:36] LABS: Hematocrit 42.3 % (37.0-47.0); Hemoglobin 13.6 g/dL (12.0-15.0); Immature Granulocyte Percent A 0.2 % (0-0.5); Lymphocytes Absolute Auto 2.24 K/mm3 (0.9-3.2); Mean Corpuscular HGB Conc 32.2 g/dl (32-36); Mean Corpuscular Hemoglobin 30.0 pg (26-34); Mean Corpuscular Volume 93.2 fl (80-100); Nucleated Red Blood Cells Absolute Auto 0.000 K/mm3 (0.0-0.012); Nucleated Red Blood Cells Perc 0.0 % (0.0-0.2); Platelet Count Result 244 k/mm3 (150-375); Red Blood Count 4.54 M/mm3 (4.2-5.4); White Blood Count 5.6 K/mm3 (4.5-10.0)
[2025-01-08 20:43] LABS: Thyroid Stimulating Hormone 0.281 uIU/mL (0.465-4.680)
== END 2025-01-08 09:16 | disposition home or self-care (01) ==
LOC: ANHGOSHLAB 09:16
PROVIDERS: PCP Nurse Practitioner Family; Visit Provider Nurse Practitioner Family
DX: E78.5 Hyperlipidemia, unspecified (principal); E03.9 Hypothyroidism, unspecified; I25.10 Atherosclerotic heart disease of native coronary artery without angina pectoris
CPT/HCPCS: 36415; 80053; 80061; 84443; 85025

== ENCOUNTER 2025-03-01 07:17 | Outpatient (CLI) | payer MEDICARE, OTHER, SELFPAY ==
--- NOTE | ~2025-03-01 | MM_ITS ---
EXAMINATION: MM screening chuy BI w karina HISTORY: Screening TECHNIQUE: Craniocaudal and mediolateral oblique 3-D tomosynthesis images were obtained and synthetic 2-D images were generated. CAD analysis was submitted and interpreted. COMPARISON: Comparison to multiple prior studies sequentially, with oldest reviewed study dated 04/26/2019. BREAST PARENCHYMAL COMPOSITION: Not dense: There are scattered areas of fibroglandular density. FINDINGS: There is no evidence of suspicious mass, calcification, or architectural distortion to suggest malignancy in either breast. There has been no suspicious interval change. IMPRESSION: 1. No mammographic evidence of malignancy. 2. Recommend routine screening mammography in one year. BI-RADS Category 1: Negative Reviewed, dictated and finalized at location [facility]
--- OUTSIDE RECORDS SUMMARY | 2025-03-01 07:21 | XMS_ITS | Clinical Summary ---
Author Organization [facility] [employer] Address [address] [place] [address] Care Team Providers Care Metal Polisher And Buffer Apprentice Name Role Phone Unavailable Primary Care Provider Unavailabl e Source Comments [facility] [employer],non-owned Affiliates and Associated Physician Practices is amultiple site organization consisting of ambulatory clinics and hospital sitesin [place], [place], [place] and [place]. This disclosure is being madepursuant to the Care Everywhere program and may not contain all information available regarding this patient. Last updated 18.[facility] [employer] Allergies Active Allergy Reactions Criticality Noted Date [...]
--- OUTSIDE RECORDS SUMMARY | 2025-03-01 07:21 | XMS_ITS | Clinical Summary ---
Author Organization [facility] Address [address] [address] Phone Care Team Providers Care Rubber Tester Name Role Phone Unavailable Primary Care Provider Unavailabl e Social History Tobacco Use Types Packs/Day Years Used Date Smoking Tobacco: Never Assessed Comments Unknown Sex and Gender Information Value Date Recorded Sex Assigned at Not on file Legal Sex Female 10:51 AM RESIDENT HALL DIRECTOR Gender Identity Not on file Sexual Orientation Not on file Plan of Treatment Health Maintenance Due Date Last Done Comments Hepatitis C Virus (HCV) Screening 1950 TdaP Immunization 1950 Cologuard 1996 Colonoscopy 1996 Colorectal Cancer Screening 1996 Immunochemical Fecal Occult Blood 1996 Pneumococcal Immunization (5 0+ years) (1 of 1 - PCV) 2001 Zoster Immunization (1 of 2) 2001 Influenza Immunization (#1) 2024 SARS-COV-2 Immunization ( - season) 2024 Respiratory Syncytial Virus (RSV) Immunization (Adult) [...] patient's age to complete this topic Insurance [facility]
--- OUTSIDE RECORDS SUMMARY | 2025-03-01 07:21 | XMS_ITS | Encounter Summary ---
Author Organization [facility] Address [address] [place] [address] Care Team Providers Care Patient Flow Coordinator Name Role Phone Unavailable Primary Care Provider Unavailabl e Reason for Visit * Reason Onset Date Comments Question 10/02/2021 Encounter Details Date Type Department Care Team (Late st Contact Info) Description 10/02/2021 Telephone [facility] [address] [place], [place] [id number] Shana Chou MD [address] [place] [address] Question Social History Tobacco Use [...] leave it or remove it.. please contact CB#[phone] documented in this encounter Plan of Treatment Not on file documented as of this encounter Visit Diagnoses Not on filedocumented in this encounter
--- OUTSIDE RECORDS SUMMARY | 2025-03-01 07:21 | XMS_ITS | Clinical Summary ---
Author Organization [facility] Address [address] [place] [address] Care Team Providers Care Branch Or Department Chief Librarian Name Role Phone Unavailable Primary Care Provider Unavailabl e Social History Tobacco Use Types Packs/Day Years Used Date Smoking Tobacco: Never Assessed Comments Unknown Sex and Gender Information Value Date Recorded Sex Assigned at Not on file Legal Sex Female 9:03 PM CDT Gender Identity Not on file Sexual Orientation Not on file Plan of Treatment Health Maintenance Due Date Last Done Comments Colorectal Cancer Screening Colonoscopy (10 Years) 1950 Hepatitis C 1969 DTaP, Tdap and Td Vaccines ( 1 - Tdap) 1970 Pneumococcal Vaccine: 50+ Ye ars (1 of 1 - PCV) 2001 Zoster Vaccines (1 of 2) 2001 Dexa Scan (General) 2016 Mammogram Screening 04/26/2021 04/26/2019 COVID-19 Vaccine (1 - 2024-2 6 season) 2024 Influenza Adult (#1) 2025 RSV Immunization or 60+ Years (1 - 1-dose 75+ series) 2026 Hepatitis A Vaccines Aged Out No long er eligible based on patient's age to complete this topic Meningococcal B Vaccine Aged Out No l onger eligible based on patient's age to complete this topic Meningococcal Vaccine Aged Out No tom pop eligible based on patient's age to complete this topic RSV Immunizations Under 20 Months Aged Out No longer eligible based on patient's age to complete this topic Procedures Procedure Name Priority Date/Time Associated Diagnosis Comments MAMMOGRAM GENERIC (SCAN ORDER) 04/26/2019 from Last 3 Months or Most Recently Relevant to Health Maintenance Results * MAMMOGRAM GENERIC (04/26/2019) Anatomical Region Laterality Modality Other 04/26/2019 Narrative 04/26/2019 Ordered by an unspecified provider. us Documents Scanned SCANNING Final Result from Last 3 Months or Most Recently Relevant to Health Maintenance
== END 2025-03-01 07:18 | disposition home or self-care (01) ==
LOC: CHSIMG 07:18
PROVIDERS: PCP Nurse Practitioner Family; Visit Provider Nurse Practitioner Family
DX: Z12.31 Encounter for screening mammogram for malignant neoplasm of breast (principal)
CPT/HCPCS: 77063; 77067